=== PATIENT | female | born 1950 | race Hispanic/Latino ===

== ENCOUNTER 2019-06-20 22:12 | Emergency (ER) | payer BC, OTHER ==
[2019-06-20] MEDS ORDERED: ORPHENADRINE CITRATE 30 MG/ML ML ONE (22:58)
[2019-06-20] MEDS ORDERED: SODIUM CHLORIDE 0.9% 1000ML 1,000 ML IV ONE (22:59)
[2019-06-20] MEDS ORDERED: KETOROLAC TROMETHAMINE 15MG/ML ONE (22:59)
[2019-06-20 23:30] LABS: BASOPHILS % (AUTO) 0.4 % (0.0-5.0); EOSINOPHILS % (AUTO) 1.3 % (0.0-8.0); HEMATOCRIT 35.8 % (36-48); LYMPHOCYTES % (AUTO) 30.2 % (21.0-51.0); MEAN CORPUSCULAR HEMOGLOBIN 29.3 pg (27.0-33.0); MEAN CORPUSCULAR VOLUME 88.8 fL (79-99); MONOCYTES % (AUTO) 7.3 % (3.0-13.0); NEUTROPHILS % (AUTO) 60.7 % (40.0-77.0); PLATELET COUNT (AUTO) 279 K/uL (130-400); RED BLOOD CELL COUNT(AUTO) 4.03 MIL/uL (4.00-5.50); RED CELL DISTRIBUTION WIDTH 12.3 % (11.0-15.5); WHITE BLOOD COUNT (AUTO) 6.7 K/uL (4.8-10.8)
[2019-06-20 23:41] LABS: CREATININE 0.8 mg/dL (0.5-1.5); POTASSIUM 3.7 mmol/L (3.5-5.1)
[2019-06-20 23:46] LABS: ALBUMIN 3.9 g/dL (3.5-5.0); BILIRUBIN,TOTAL 0.1 mg/dL (0.2-1.0); TOTAL PROTEIN, SERUM 7.9 g/dL (6.0-8.3)
[2019-06-21 00:18] LABS: APPEARANCE,URINE Clear (CLEAR); BILIRUBIN,URINE Negative (NEGATIVE); COLOR,URINE Yellow (YELLOW); GLUCOSE, URINE (UA) Negative (NEGATIVE); KETONES,URINE Negative (NEGATIVE); LEUKOCYTE ESTERASE ,URINE Trace (NEGATIVE); NITRATE,URINE Negative (NEGATIVE); OCCULT BLOOD,URINE Negative (NEGATIVE); PROTEIN,URINE Negative (NEGATIVE); UROBILINOGEN,URINE 0.2 mg/dL (0.2-1.0)
[2019-06-21 00:26] LABS: BACTERIA,URINE Rare /HPF (None Seen); RBC,URINE 0-1 /HPF (0-1)
[2019-06-21 00:27] LABS: MUCUS,URINE Rare LPF (None Seen)
== END 2019-06-21 01:31 | disposition home or self-care (01) ==
LOC: EDH 22:12
DX: M54.5 Low back pain (principal); M62.838 Other muscle spasm; R51 Headache; E11.9 Type 2 diabetes mellitus without complications; E78.00 Pure hypercholesterolemia, unspecified; M19.90 Unspecified osteoarthritis, unspecified site; M79.7 Fibromyalgia; Z90.710 Acquired absence of both cervix and uterus
CPT/HCPCS: 36415; 72131; 80053; 81001; 83690; 85025; 96374 ×2; 99285; J1885; J2360; J7030

== ENCOUNTER → 2019-07-04 | Outpatient (CLI) | payer OTHER | END | disposition home or self-care (01) | LOC: RAH 13:18 | PROVIDERS: ATTEND Internal Medicine | DX: R10.32 Left lower quadrant pain (principal); M51.16 Intervertebral disc disorders with radiculopathy, lumbar region; R93.89 Abnormal findings on diagnostic imaging of other specified body structures | CPT/HCPCS: 72192 ==

== ENCOUNTER → 2020-12-12 | Outpatient (CLI) | payer OTHER | END | disposition home or self-care (01) | LOC: SHCH 11:22 | PROVIDERS: ATTEND Internal Medicine Cardiovascular Disease | DX: I51.7 Cardiomegaly (principal); R55 Syncope and collapse; E11.9 Type 2 diabetes mellitus without complications | CPT/HCPCS: 93306; 93356 ==

== ENCOUNTER → 2022-03-31 | Outpatient (CLI) | payer OTHER | END | disposition home or self-care (01) | LOC: RAH 11:11 | PROVIDERS: ATTEND Otolaryngology Plastic Surgery within the Head & Neck | DX: R22.1 Localized swelling, mass and lump, neck (principal) | CPT/HCPCS: 76536 ==